=== PATIENT | female | born 1955 | race African-American/Black ===

== ENCOUNTER → 2021-03-06 | Day surgery (SDC) | payer MEDICARE ==
[~2021-03-06] MED LIST: LIDOCAINE HCL 1% 30ML VIAL (10MG/ML) ONE; SODIUM BICARBONATE 4% (2.4MEQ) 5ML VIAL IV ONE
== END | disposition home or self-care (01) ==
LOC: RAD 08:41
PROVIDERS: ATTEND Specialist
DX: E04.1 Nontoxic single thyroid nodule (principal); Z79.899 Other long term (current) drug therapy; Z20.822 Contact with and (suspected) exposure to COVID-19
CPT/HCPCS: 10005; 87426; 88172; 88173; J3490; 20206

== ENCOUNTER 2022-07-17 06:04 | Inpatient (IN) | payer MEDICARE, OTHER ==
[~2022-07-17] VITALS: Ht 193 cm; Wt 66.4 kg
[2022-07-17] VITALS (43 sets, daily range): BP systolic 85–210; BP diastolic 50–123
[~2022-07-17 06:04] MED LIST changes: +AMLO10TA80 PO; +DIPH25TA23 PO; -LIDOCAINE HCL 1% 30ML VIAL (10MG/ML) ONE; -SODIUM BICARBONATE 4% (2.4MEQ) 5ML VIAL IV ONE; +TIZA4CAP PO
[2022-07-17] MEDS ORDERED: TRANEXAMIC ACID 1,000 MG/10 ML IV NR (06:30)
[2022-07-17 06:53] LABS: BASOPHILS % 0.2 % (0.0-2.0); EOSINOPHILS % 0.6 % (0.0-5.0); HEMATOCRIT. 41.1 % (36.0-48.0); HEMOGLOBIN. 13.6 g/dL (12.0-16.0); LYMPHOCYTES % 38.6 % (20.0-50.0); MEAN CORPUSCULAR HEMOGLOBIN 30.4 pg (28.0-32.0); MEAN PLATELET VOLUME 10.1 fl (7.4-10.4); MONOCYTES % 9.2 % (2.0-8.0); NEUTROPHILS % 51.4 % (40.0-76.0); PLATELET 166 x1000/uL (130-400); RED BLOOD CELL COUNT 4.47 mill/uL (4.2-5.4); RED CELL DISTRIBUTION WIDTH 13.2 % (11.6-14.6)
[2022-07-17 07:10] LABS: CHLORIDE 110 mEq/L (98-107)
[2022-07-17] MEDS ORDERED: LACTATED RINGERS 1,000 ML IV SCH (07:30)
[2022-07-17 07:52] LABS: PARTIAL THROMBOPLASTIN TIME 25.7 sec (23.4-31.0); PROTHROMBIN TIME 10.5 sec (9.6-11.0)
[2022-07-17] MEDS ORDERED: FLUT100B IH (09:01)
[2022-07-17] MEDS ORDERED: CHOL100036 PO (09:01)
[2022-07-17] MEDS ORDERED: FAMO-135 PO (09:01)
[2022-07-17] MEDS ORDERED: SIMV-46 PO (09:01)
[2022-07-17] MEDS ORDERED: HYDR-4009 PO (09:01)
[2022-07-17] MEDS ORDERED: LIDOCAINE HCL/EPINEPHRINE 1%-EPI 1:100,000 20 ML VIAL ONE (11:45)
[2022-07-17] MEDS ORDERED: GENTAMICIN SULF 40MG/ML 2ML VIAL ONE (11:45)
[2022-07-17] MEDS ORDERED: THROMBIN (BOVINE) 5000 UNITS/VIAL TOP ONE (11:45)
[2022-07-17] MEDS ORDERED: PROPOFOL 200MG/20ML VIAL IV ONE (11:53)
[2022-07-17] MEDS ORDERED: FENTANYL CITRATE/PF 50MCG/ML 2ML VIAL ONE ×2 (11:53→13:10)
[2022-07-17] MEDS ORDERED: ROCURONIUM BROMIDE 10MG/ML VIAL 5ML IV ONE ×2 (11:55→13:22)
[2022-07-17] MEDS ORDERED: LIDOCAINE HCL 1% 10 MG/ML 10ML VIAL ONE (11:56)
[2022-07-17] MEDS ORDERED: NICARDIPINE 100 MG in SODIUM CHLORIDE 0.9% 60 ML IV PRN (13:00)
[2022-07-17] MEDS: DEXT 5%/LACTATED RINGERS 1,000 ML IV SCH ×2 (13:00→23:00)
[2022-07-17] MEDS ORDERED: CEFAZOLIN SODIUM 1000MG/VIAL IV SCH (14:00)
[2022-07-17] MEDS ORDERED: GLYCOPYRROLATE 0.2 MG/ML 2ML VIAL ONE ×3 (14:25)
[2022-07-17] MEDS: MORPHINE SULFATE 4 MG/ML CPJ (NOT FOR IM USE) IV PRN ×3 (15:15→20:08)
[2022-07-17] MEDS ORDERED: NALOXONE HCL 1 MG/ML 2ML VIAL IV NR (15:45)
[2022-07-17 17:43] LABS: BG BASE EXCESS -3.2 mmol/L (-2.0-2.0); BG CARBOXYHEMOGLOBIN 0.3 % (0.5-1.5); BG DEOXYHEMOGLOBIN 4.4 % (0.0-5.0); BG HCO3 ACT 21.8 mmol/L (22.0-26.0); BG METHEMOGLOBIN 0.4 % (0.0-1.5); BG OXYGEN SATURATION 95.6 % (92.0-98.5); BG OXYHEMOGLOBIN 94.9 % (94.0-97.0); BG PCO2 39.1 mmHg (35.0-45.0); BG PH 7.364 (7.350-7.450); BG PO2 82.3 mmHg (75.0-100.0); BG SAMPLE SITE ALINE; BG TOTAL HEMOGLOBIN 13.6 g/dL (12.0-18.0); BG VENT MODE NASAL CANNULA
[2022-07-17] MEDS: DEXAMETHASONE 4MG/ML 1ML VIAL IV SCH (18:03)
[2022-07-17] MEDS: CEFAZOLIN 1000MG PREMIX 50 ML IV SCH (21:12)
[2022-07-18] VITALS (87 sets, daily range): BP systolic 82–168; BP diastolic 44–130
[2022-07-18] MEDS: MORPHINE SULFATE 4 MG/ML CPJ (NOT FOR IM USE) IV PRN ×7 (01:05→19:47)
[2022-07-18] MEDS: DEXAMETHASONE 4MG/ML 1ML VIAL IV SCH ×4 (01:05→17:14)
[2022-07-18] MEDS: CEFAZOLIN 1000MG PREMIX 50 ML IV SCH ×3 (06:05→22:30)
[2022-07-18] MEDS: PANTOPRAZOLE SODIUM 40 MG/VIAL IV SCH (08:08)
[2022-07-18] MEDS: DEXT 5%/LACTATED RINGERS 1,000 ML IV SCH ×2 (08:09→19:07)
[2022-07-18] MEDS ORDERED: NALOXONE HCL 0.4MG/ML VIAL IV PRN (09:15)
[2022-07-19] VITALS (7 sets, daily range): BP systolic 109–124; BP diastolic 61–76
[2022-07-19] MEDS: MORPHINE SULFATE 4 MG/ML CPJ (NOT FOR IM USE) IV PRN ×6 (02:11→18:43)
[2022-07-19] MEDS: DEXT 5%/LACTATED RINGERS 1,000 ML IV SCH ×2 (04:42→15:10)
[2022-07-19] MEDS: PANTOPRAZOLE SODIUM 40 MG/VIAL IV SCH (08:17)
[2022-07-20] MEDS ORDERED: FAMOTIDINE 20MG/2ML VIAL IV SCH (09:00)
== END 2022-07-19 18:55 | DRG 471 ==
LOC: OR 06:04 → MICUSO 15:40 → 6EST 07-19 00:56
PROVIDERS: ADMIT Neurological Surgery; ATTEND Neurological Surgery
PROC: 0RG20A0 Fusion of 2 or more Cervical Vertebral Joints with Interbody Fusion Device, Anterior Approach, Anterior Column, Open Approach (ICD-10-PCS; principal; 2022-07-17)
PROC: 0RB30ZZ Excision of Cervical Vertebral Disc, Open Approach (ICD-10-PCS; 2022-07-17)
PROC: 5A09357 Assistance with Respiratory Ventilation, Less than 24 Consecutive Hours, Continuous Positive Airway Pressure (ICD-10-PCS; 2022-07-17)
DX: M48.02 Spinal stenosis, cervical region (principal); G82.50 Quadriplegia, unspecified; G93.41 Metabolic encephalopathy; G82.20 Paraplegia, unspecified; M47.12 Other spondylosis with myelopathy, cervical region; I10 Essential (primary) hypertension; E78.5 Hyperlipidemia, unspecified; K21.9 Gastro-esophageal reflux disease without esophagitis; J45.909 Unspecified asthma, uncomplicated; R26.89 Other abnormalities of gait and mobility; G89.4 Chronic pain syndrome; Z20.822 Contact with and (suspected) exposure to COVID-19; R13.10 Dysphagia, unspecified; Z82.49 Family history of ischemic heart disease and other diseases of the circulatory system; Z98.1 Arthrodesis status
CPT/HCPCS: 36415; 36600; 72040; 72141; 76000; 80048; 82375; 82805; 85025; 86850; 86900; 87426; 88304; 88311; 94660; 95925; 95926; 95928; 95929; 97116; 97162; 97166; 97530; C1893; C9113; C9803; J0690; J1100; J1580; J2270; J2310; J2704; J3010; J3490; J7050; J7121; L0172; L3908; C1713; C1889

== ENCOUNTER → 2024-08-25 | Outpatient (CLI) | payer MEDICARE, MEDICAID ==
[~2024-08-25] MED LIST changes: -AMLO10TA80 PO; +CHOL100036 PO; +CYCL1DRO14 BOTHEYE; -DIPH25TA23 PO; +FAMO-135 PO; +FLUT100B IH; +GABA-1180 PO; +HYDR-4009 PO; +SIMV-46 PO
== END | disposition home or self-care (01) ==
LOC: CT 09:25
PROVIDERS: ATTEND Internal Medicine Critical Care Medicine
DX: J32.9 Chronic sinusitis, unspecified (principal); Z91.81 History of falling
CPT/HCPCS: 70486

== ENCOUNTER → 2024-11-30 | Outpatient (CLI) | payer MEDICARE, OTHER | END | disposition home or self-care (01) | LOC: MRI 12:01 | DX: S46.812A Strain of other muscles, fascia and tendons at shoulder and upper arm level, left arm, initial encounter (principal); M19.012 Primary osteoarthritis, left shoulder; M75.02 Adhesive capsulitis of left shoulder; M25.712 Osteophyte, left shoulder; M65.912 Unspecified synovitis and tenosynovitis, left shoulder; M67.814 Other specified disorders of tendon, left shoulder; M25.812 Other specified joint disorders, left shoulder; M25.512 Pain in left shoulder; X58.XXXA Exposure to other specified factors, initial encounter; Y93.89 Activity, other specified; Y92.89 Other specified places as the place of occurrence of the external cause; Y99.8 Other external cause status | CPT/HCPCS: 73030; 73221 ==